=== PATIENT | female | born 1965 | race Caucasian/White ===

== ENCOUNTER 2018-02-27 18:43 | Emergency (ER) | payer MEDICARE, BC ==
[2018-02-27] MEDS ORDERED: Ondansetron 4 MG/2 ML SDV IVPUSH ONE (19:53)
[2018-02-27] MEDS ORDERED: HYDROmorphone 0.5 MG/0.5 ML Syringe IVPUSH ONE ×2 (19:53→21:53)
--- NOTE | 2018-02-27 19:58 | EDM.PDOC ---
ED HPI GENERAL MEDICAL PROBLEM - General Chief Complaint: Fever Stated Complaint: FEVER,PAIN/SURGERY Time Seen by Provider: 02/27/18 19:55 Source of Information: Reports: Patient, Family History Limitations: Reports: No Limitations - History of Present Illness INITIAL COMMENTS - FREE TEXT/NARRATIVE: Pt arrived with severe pain in the rt upper abdoman. She has a cather in her liver which she is irrrigating with. 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 Onset: Other ( The pain started getting worse yesterday. She spiked a high temp up to 103 at home. Her temp is down now. ) Duration: Hour(s):, Getting Worse Location: Reports: Abdomen Associated Symptoms: Reports: Fever/Chills, Weakness, Other (pt is having severe pain. ) - Related Data Allergies Allergy/AdvReac Type Severity Reaction Status Date / Time gabapentin Allergy Abdominal Verified 02/27/18 19:22 Pain ibuprofen [From Motrin] Allergy Abdominal Verified 02/27/18 19:22 Pain Home Meds: Home Meds Amoxicillin/Potassium Clav [Amox-Clav 875-125 mg Tablet] 1 tab PO BID 02/27/18 [ History] Dexamethasone 4 mg PO DAILY PRN 02/27/18 [History] Melatonin 5 mg PO BEDTIME PRN 02/27/18 [History] Prochlorperazine Maleate [Compazine] 10 mg PO QID PRN 02/27/18 [History] Promethazine [Phenergan] 25 mg PO BID PRN 02/27/18 [History] oxyCODONE 5 mg PO Q6H PRN 02/27/18 [History] Past Medical History [employer] History: Reports: Oncologic (Cancer) History: Reports: Other (See Below) Other Oncologic History: inflamatory breast ca Dermatologic History: Reports: Other (See Below) Other Dermatologic History: inflamatory breast cancer - Infectious Disease History Infectious Disease History: Reports: Chicken Pox, Shingles - Past Surgical History HEENT Surgical History: Reports: LASIK, Tonsillectomy GI Surgical History: Reports: Other (See Below) Other GI Surgeries/Procedures: liver ablasion Female Surgical History: Reports: Hysterectomy, Mastectomy Other Female Surgeries/Procedures: right mastectomy Oncologic Surgical History: Reports: Mastectomy Social & Family History - Family History Family Medical History: Noncontributory - Tobacco Use Smoking Status *Q: Never Smoker - Caffeine Use Caffeine Use: Reports: Coffee - Recreational Drug Use Recreational Drug Use: No ED ROS GENERAL - Review of Systems Review Of Systems: See Below Constitutional: Reports: Fever, Chills, Malaise, Weakness HEENT: Reports: No Symptoms Respiratory: Reports: No Symptoms Cardiovascular: Reports: No Symptoms Endocrine: Reports: No Symptoms GI/Abdominal: Reports: Abdominal Pain, Decreased Appetite : Reports: No Symptoms Musculoskeletal: Reports: No Symptoms Skin: Reports: No Symptoms ED EXAM, SEPSIS - Physical Exam Exam: See Below Text/Narrative:: pt is chilling and having alot of pain in the rt upper abdoman. She has a tube in a site where a tumor was ablated. She is on antibiotics for a possible infection in the site. She is irrigating the site with saline. She Has pain rated at a 10, Exam Limited By: No Limitations General Appearance: Alert, Anxious, Severe Distress Ears: Normal TMs Nose: Normal Inspection Throat/Mouth: Normal Inspection Head: Atraumatic Neck: Normal Inspection Respiratory/Chest: No Respiratory Distress Cardiovascular: Regular Rate, Rhythm, Tachycardia, Other (pt has a heart rate of 120. ) GI/Abdominal Exam: Tender, Other ( Pt is very tender near the area where the tube is coming out. ) (Female) Exam: Deferred Rectal (Female) Exam: Deferred Back: Normal Inspection Extremities: Normal Inspection Neurological: Alert, Oriented, Normal Cognition Psychiatric: Normal Affect Course - Vital Signs Last Recorded V/S: Last Vital Signs Temp 37.1 C 02/27/18 21:08 Pulse 102 H 02/27/18 21:08 Resp 18 02/27/18 21:08 BP 135/77 02/27/18 21:08 Pulse Ox 91 L 02/27/18 21:08 - Orders/Labs/Meds Orders: Active Orders 24 hr Category Date Time Status CULTURE BLOOD [BC] Urgent Lab 02/27/18 19:48 Received CULTURE BLOOD [BC] Urgent Lab 02/27/18 19:48 Received UA W/MICROSCOPIC [URIN] Urgent Lab 02/27/18 19:52 Ordered Sodium Chloride 0.9% [Normal Saline] 1,000 ml Med 02/27/18 20:00 Active IV ASDIRECTED Sodium Chloride 0.9% [Normal Saline] 1,000 ml Med 02/27/18 21:30 Ordered IV ASDIRECTED Blood Culture x2 Reflex Set [OM.PC] Urgent Oth 02/27/18 19:50 Ordered Medication Orders Sodium Chloride (Normal Saline) 1,000 mls @ 999 mls/hr IV ASDIRECTED SANDRA Last Admin: 02/27/18 20:02 Dose: 999 mls/hr Sodium Chloride (Normal Saline) 1,000 mls @ 999 mls/hr IV ASDIRECTED SANDRA Last Admin: 02/27/18 21:28 Dose: 999 mls/hr Labs: Laboratory Tests 02/27/18 02/27/18 02/27/18 Range/Units 19:48 19:48 19:48 WBC 27.2 H (4.5-11.0) K/uL RBC 4.14 (3.30-5.50) M/uL Hgb 12.4 (12.0-15.0) g/dL Hct 38.7 (36.0-48.0) % MCV 94 (80-98) fL MCH 30 (27-31) pg MCHC 32 (32-36) % Plt Count 401 H (150-400) K/uL Neut % (Auto) 88 H (36-66) % Lymph % (Auto) 4 L (24-44) % Edwards % (Auto) 8 H (2-6) % Eos % (Auto) 0 L (2-4) % Baso % (Auto) 0 (0-1) % Sodium 134 L (140-148) mmol/L Potassium 3.3 L (3.6-5.2) mmol/L Chloride 97 L (100-108) mmol/L Carbon Dioxide 24 (21-32) mmol/L Anion Gap 16.3 H (5.0-14.0) mmol/L BUN 6 L (7-18) mg/dL Creatinine 0.8 (0.6-1.0) mg/dL Est Cr Clr Drug Dosing 72.34 mL/min Estimated GFR (MDRD) > 60 (>60) Glucose 111 H (74-106) mg/dL Lactic Acid 1.3 (0.4-2.0) mmol/L Calcium 8.8 (8.5-10.1) mg/dL Total Bilirubin 0.4 (0.2-1.0) mg/dL AST 14 L (15-37) U/L ALT 20 (12-78) U/L Alkaline Phosphatase 204 H (46-116) U/L Total Protein 7.3 (6.4-8.2) g/dL Albumin 2.7 L (3.4-5.0) g/dL Globulin 4.6 H (2.3-3.5) g/dL Albumin/Globulin Ratio 0.6 L (1.2-2.2) Meds: Medications Generic Name Dose Route Start Last Admin Trade Name Freq PRN Reason Stop Dose Admin Sodium Chloride 1,000 mls @ 999 mls/hr 02/27/18 20:00 02/27/18 20:02 Normal Saline IV 999 mls/hr ASDIRECTED SANDRA Administration Sodium Chloride 1,000 mls @ 999 mls/hr 02/27/18 21:30 02/27/18 21:28 Normal Saline IV 999 mls/hr ASDIRECTED SANDRA Administration Discontinued Medications Generic Name Dose Route Start Last Admin Trade Name Manpreetq PRN Reason Stop Dose Admin Hydromorphone HCl 0.5 mg 02/27/18 19:53 02/27/18 20:02 Dilaudid IVPUSH 02/27/18 19:54 0.5 mg ONETIME ONE Administration Meropenem 1 gm/ Sodium 50 mls @ 100 mls/hr 02/27/18 20:30 02/27/18 20:38 Chloride IV 02/27/18 20:59 100 mls/hr ONETIME ONE Administration Ondansetron HCl 4 mg 02/27/18 19:53 02/27/18 20:02 Zofran IVPUSH 02/27/18 19:54 4 mg ONETIME ONE Administration - Re-Assessments/Exams Free Text/Narrative Re-Assessment/Exam: 02/27/18 21:Pt has a wbcof 27,000. Her vitals remain good. Her pain was relieved with dilaudid .5 will repeat that before she transfers. Oncology in [place] was consulted and they feel she needs to be a inpt. Departure - Departure Time of Disposition: 21:39 Disposition: DC/Tfer to Acute Hospital 02 Condition: Fair Clinical Impression: Sepsis, Metastatic breast cancer, Dehydration - Discharge Information Referrals: Kim Chowdhury MD [Primary Care Provider] - Forms: ED Department Discharge Care Plan Goals: transfer to [facility] - My Orders Last 24 Hours: My Active Orders 02/27/18 19:48 CULTURE BLOOD [BC] Urgent CULTURE BLOOD [BC] Urgent 02/27/18 19:50 Blood Culture x2 Reflex Set [OM.PC] Urgent 02/27/18 19:52 UA W/MICROSCOPIC [URIN] Urgent 02/27/18 20:00 Sodium Chloride 0.9% [Normal Saline] 1,000 ml IV ASDIRECTED 02/27/18 21:30 Sodium Chloride 0.9% [Normal Saline] 1,000 ml IV ASDIRECTED - Assessment/Plan Last 24 Hours: My Active Orders 02/27/18 19:48 CULTURE BLOOD [BC] Urgent CULTURE BLOOD [BC] Urgent 02/27/18 19:50 Blood Culture x2 Reflex Set [OM.PC] Urgent 02/27/18 19:52 UA W/MICROSCOPIC [URIN] Urgent 02/27/18 20:00 Sodium Chloride 0.9% [Normal Saline] 1,000 ml IV ASDIRECTED 02/27/18 21:30 Sodium Chloride 0.9% [Normal Saline] 1,000 ml IV ASDIRECTED
[2018-02-27] MEDS ORDERED: Sodium Chloride 0.9% 1,000 ML IV SCH ×2 (20:00→21:30)
== END 2018-02-27 22:28 ==
LOC: JP.ED 18:43
DX: A41.9 Sepsis, unspecified organism (principal); E86.0 Dehydration; C50.919 Malignant neoplasm of unspecified site of unspecified female breast; Z88.8 Allergy status to other drugs, medicaments and biological substances; Z88.6 Allergy status to analgesic agent; Z79.899 Other long term (current) drug therapy
CPT/HCPCS: 36415; 80053; 83605; 85025; 87040; 96361; 96365; 96375; 96376; 99285; J1170; J2185; J2405; J7040; J7050

== ENCOUNTER 2018-12-29 13:03 | Emergency (ER) | payer MEDICARE, BC ==
--- NOTE | 2018-12-29 13:59 | EDM.PDOC ---
ED HPI GENERAL MEDICAL PROBLEM - General Chief Complaint: General Stated Complaint: NEEDS XRAY AND DRAINING Time Seen by Provider: 12/29/18 13:40 Source of Information: Reports: Patient, Family History Limitations: Reports: No Limitations - History of Present Illness INITIAL COMMENTS - FREE TEXT/NARRATIVE: 53-year-old female with metastatic breast cancer has had a history of recurring pleural effusions which needed thoracentesis. Over the past 5-7 days she's had increased shortness of breath and decreased oxygen saturations. She called her oncologist to see if she could increase her oxygen, they recommended she come in for x-ray and possible thoracentesis. No fevers or chills. She is actually quite comfortable when still. Onset: Gradual Duration: Day(s): (7 days) Worsens with: Reports: Other (Activity causes increased shortness of breath) Associated Symptoms: Reports: Other (She also has peripheral edema) - Related Data Allergies Allergy/AdvReac Type Severity Reaction Status Date / Time gabapentin Allergy Abdominal Verified 02/27/18 19:22 Pain ibuprofen [From Motrin] Allergy Abdominal Verified 02/27/18 19:22 Pain Home Meds: Home Meds Melatonin 5 mg PO BEDTIME PRN 02/27/18 [History] Calcium Carbonate/Vitamin D3 [Calcium Carb 500 MG] 500 mg PO DAILY 12/29/18 [ History] HYDROmorphone [Dilaudid] 4 mg PO Q4H PRN 12/29/18 [History] Metoclopramide [Reglan] 5 mg PO TID 12/29/18 [History] Multivitamin [Multivitamins] 1 tab PO DAILY 12/29/18 [History] Ondansetron HCl [Ondansetron] 4 mg PO ASDIRECTED PRN 12/29/18 [History] Sennosides [Senna] 2 tab PO DAILY 12/29/18 [History] fentaNYL [Duragesic] 75 mcg TOP ASDIRECTED 12/29/18 [History] Past Medical History [employer] History: Reports: Oncologic (Cancer) History: Reports: Other (See Below) Other Oncologic History: inflamatory breast ca Dermatologic History: Reports: Other (See Below) Other Dermatologic History: inflamatory breast cancer - Infectious Disease History Infectious Disease History: Reports: Chicken Pox, Shingles - Past Surgical History HEENT Surgical History: Reports: LASIK, Tonsillectomy GI Surgical History: Reports: Other (See Below) Other GI Surgeries/Procedures: liver ablasion Female Surgical History: Reports: Hysterectomy, Mastectomy Other Female Surgeries/Procedures: right mastectomy Oncologic Surgical History: Reports: Mastectomy Social & Family History - Family History Family Medical History: Noncontributory - Tobacco Use Smoking Status *Q: Never Smoker - Caffeine Use Caffeine Use: Reports: Coffee - Recreational Drug Use Recreational Drug Use: No ED ROS GENERAL - Review of Systems Review Of Systems: See Below Constitutional: Reports: Malaise, Weakness. Denies: Fever, Chills HEENT: Reports: No Symptoms Respiratory: Reports: Shortness of Breath GI/Abdominal: Denies: Nausea, Vomiting Skin: Reports: Pallor Psychiatric: Reports: No Symptoms ED EXAM, GENERAL - Physical Exam Exam: See Below Exam Limited By: No Limitations General Appearance: Alert, No Apparent Distress Eye Exam: Bilateral Eye: Normal Inspection Respiratory/Chest: No Respiratory Distress, Other (Patient has decreased breath sounds in the left base posteriorly, no rales or rhonchi) Cardiovascular: Regular Rate, Rhythm, Tachycardia Extremities: Pedal Edema (1+ symmetric lower extremity edema) Neurological: Alert, Oriented Psychiatric: Normal Affect, Normal Mood Course - Vital Signs Last Recorded V/S: Last Vital Signs Temp 96.7 F 12/29/18 13:27 Pulse 122 H 12/29/18 13:27 Resp 16 12/29/18 13:27 BP 144/80 H 12/29/18 13:27 Pulse Ox 88 L 12/29/18 13:27 - Orders/Labs/Meds Orders: Active Orders 24 hr Category Date Time Status US Guidance Thoracentesis VT [US] Stat Exams 12/29/18 14:09 Taken - Re-Assessments/Exams Free Text/Narrative Re-Assessment/Exam: 12/29/18 13:59 A two-view chest x-ray was obtained. 12/29/18 16:42 X-ray confirmed a significant left pleural effusion. Ultrasound marked the thoracentesis spot, and Dr. Barclay was consulted for thoracentesis. Initial fluid was sent for cytology. 12/29/18 16:54 A total of 440 mL of pleural fluid was released and collected, a post procedure x-ray done. 12/29/18 17:06 Post procedure x-ray showed almost complete resolve of the left pleural effusion , costophrenic angle was now open. No pneumothorax or other concerning findings. Cytology will be sent to her oncologist and she can recheck as needed. Departure - Departure Time of Disposition: 17:19 Disposition: Home, Self-Care 01 Condition: Good Clinical Impression: Pleural effusion - Discharge Information Instructions: Thoracentesis, Care After Referrals: Kim Chowdhury MD [Primary Care Provider] - Forms: ED Department Discharge Care Plan Goals: Continue with any current medications, oxygen as needed, and call or return if you develop sudden shortness of breath or other concerns. - My Orders Last 24 Hours: My Active Orders 12/29/18 14:09 US Guidance Thoracentesis [place] [US] Stat - Assessment/Plan Last 24 Hours: My Active Orders 12/29/18 14:09 US Guidance Thoracentesis [place] [US] Stat
--- NOTE | 2018-12-29 15:18 | CR ---
CHEST: 2 view CLINICAL HISTORY:Dyspnea COMPARISON:None FINDINGS: Patient has an [id number] catheter from the left jugular approach. The tip is in the superior vena cava atrial junction. There are small to moderate bilateral pleural effusions. There is some patchy bibasal airspace disease which is likely some compressive atelectasis. The heart size and pulmonary vascularity are normal. There are atherosclerotic changes in the aorta. Patient has had previous right mastectomy. Impression: Small to moderate bilateral pleural effusions of unknown etiology Patchy bibasal compressive atelectasis [id number] catheter in good position Short-term follow-up is recommended. Lung bases are partially obscured by the effusions
--- NOTE | 2018-12-29 17:34 | CRLCR ---
INDICATION: Status post thoracentesis. COMPARISON: From earlier today at 1347 hours FINDINGS: An erect single view of the chest was obtained at 1655 hours. During the interval, the small left pleural effusion has resolved, consistent with left thoracentesis. There is no sign of pneumothorax. There has been a decrease in mild patchy and platelike density in the left lung base, consistent with clearing of atelectasis. There is no change in a tiny right pleural effusion with mild patchy atelectasis of the right lung base. The rest of the chest remains clear. Again seen is a left internal jugular infusion port with its tip in satisfactory position in the superior vena cava. The heart remains normal in size. The mediastinum is normal in appearance. The osseous structures are normal in appearance for the patient`s age. Again seen are surgical clips in the right axilla consistent with lymph node dissection. IMPRESSION: Resolution of previously seen mild left pleural effusion with no sign of pneumothorax. Increased mild left basilar atelectasis. No change in tiny right pleural effusion and mild patchy atelectasis in the right lung base. Dictated by Mason Miguel MD @ Dec 29 2018 5:28PM Signed by Dr. Mason Miguel @ Dec 29 2018 5:32PM
--- NOTE | 2018-12-29 21:07 | OR ---
DATE OF PROCEDURE: 12/29/2018 PREOPERATIVE DIAGNOSES: Metastatic breast cancer, left pleural effusion. POSTOPERATIVE DIAGNOSES: Metastatic breast cancer, left pleural effusion. PROCEDURE: Left thoracentesis removing 440 mL of serous fluid, sent for cytology. SURGEON: Scooby Barclay MD. ANESTHESIA: Lidocaine 1% local. INDICATION: This is a 53-year-old white female, has metastatic breast cancer. Apparently, she has had breast cancer for six years. She has developed recurrent pleural effusions. She presented to the emergency room complaining of shortness of breath. Chest x -ray was obtained, which showed a left pleural effusion which was not very large. The digester capper marked a good place for a thoracentesis with the patient sitting upright leaning over a bedside table. He felt probably 300 to 400 mL of fluid was in the effusion. I counseled her for a left thoracentesis including risks and alternatives and she gave her informed consent to proceed. Her oncologist, Dr. Chowdhury at [facility] in [place], [place] requested that we send the fluid for cytology. DESCRIPTION OF PROCEDURE: With the patient continuing to sit upright leaning over a bedside table, the left side of her back was prepped and draped in the usual sterile fashion. plain lidocaine 1% was infiltrated at the site marked by the digester capper. The needle was introduced into the chest, aspirated obtaining serous fluid indicating this is indeed a good place for the thoracentesis. A small skin incision was made at this point. The needle with catheter manufactured by [employer] was introduced into the left chest. As soon as we obtained fluid, the catheter was advanced and the needle was removed. We obtained 40 mL of fluid in a 60 mL syringe to sent for cytology. We then attached the catheter to the suction bottle and obtained another 400 mL of serous fluid. When no more fluid could be obtained, the catheter was removed. A Band-Aid was placed at the thoracentesis site. Chest x-ray shows the fluid has been evacuated from the left chest and there was no evidence of a pneumothorax. The patient tolerated the procedure well and is released from the emergency room. The fluid is being sent for cytology with a copy to be sent to Dr. Chowdhury, oncologist at [facility] in [place], [place]. Scooby Barclay MD /[id number] MTDD
== END 2018-12-29 17:19 | disposition home or self-care (01) ==
LOC: JP.ED 13:03
DX: J90 Pleural effusion, not elsewhere classified (principal); C79.81 Secondary malignant neoplasm of breast; Z88.8 Allergy status to other drugs, medicaments and biological substances; Z88.6 Allergy status to analgesic agent; Z79.899 Other long term (current) drug therapy
CPT/HCPCS: 32555; 71045; 71046; 71046-26; 88112; 88305; 88341; 88342; 99283; 99285-25